=== PATIENT | female | born 1995 | race Caucasian/White ===

== ENCOUNTER 2023-05-24 05:16 | Emergency (ER) | payer OTHER ==
[~2023-05-24] VITALS: Ht 149.9 cm; Wt 60.0 kg
[2023-05-24 05:19] VITALS: TEMP 98.4
[2023-05-24] MEDS ORDERED: ACETAMINOPHEN 325 MG TABLET PO ONE (06:15)
[2023-05-24] MEDS ORDERED: BACITRACIN 0.9 GM PACKET OINTMENT TP ONE (06:30)
[2023-05-24 07:10] VITALS: BP 120/79; PULSE 78; RESP 18
== END 2023-05-24 08:42 | disposition home or self-care (01) ==
LOC: EMS 05:18
DX: S93.402A Sprain of unspecified ligament of left ankle, initial encounter (principal); S50.02XA Contusion of left elbow, initial encounter; Z88.2 Allergy status to sulfonamides; W01.0XXA Fall on same level from slipping, tripping and stumbling without subsequent striking against object, initial encounter; Y93.89 Activity, other specified; Y92.89 Other specified places as the place of occurrence of the external cause; Y99.8 Other external cause status
CPT/HCPCS: 84703; 99284